=== PATIENT | female | born 1945 | race Caucasian/White ===

== ENCOUNTER 2019-08-14 07:14 | Day surgery (SDC) | payer MEDICARE ==
[~2019-08-14] VITALS: Ht 167.6 cm; Wt 83.5 kg
[~2019-08-14 07:14] MED LIST: ALBU90OI INH; Aspir 8181 MG PO; CALCAVITDA PO; CENTRUM COMPLE1 EACH PO; CEPH500 PO; DOCU100 PO; DULO60 PO; ESTR2 PO; ETOD200 PO; FOSI10 PO; GABA300T24 PO; GAVILAX17 GM PO; HYDCHL12.5 PO; KETO200ER PO; KETO50 PO; Lovastatin20 MG PO; MECL25 PO; OXYC30ER PO; OXYC40ER PO; PANT20 PO; Prinivil10 MG PO; TERB5 PO; THEO200ERA PO; VERTICALM25 MG PO; ZYRTEC10 M2 PO; Zanaflex4 MG PO; [UNRECOGNIZED DRUG - OTHER] PO
== END 2019-08-14 10:00 | disposition home or self-care (01) ==
LOC: ORSCSDS 07:14
PROVIDERS: Student in an Organized Health Care Education/Training Program
PROC: 0DBP8ZX Excision of Rectum, Via Natural or Artificial Opening Endoscopic, Diagnostic (ICD-10-PCS; principal; 2019-08-14 09:00)
PROC: 0DBK8ZX Excision of Ascending Colon, Via Natural or Artificial Opening Endoscopic, Diagnostic (ICD-10-PCS; principal; 2019-08-14 09:00)
PROC: 0DBH8ZX Excision of Cecum, Via Natural or Artificial Opening Endoscopic, Diagnostic (ICD-10-PCS; principal; 2019-08-14 09:00)
DX: K92.1 Melena (principal); D12.2 Benign neoplasm of ascending colon; D12.0 Benign neoplasm of cecum; D12.8 Benign neoplasm of rectum; K57.30 Diverticulosis of large intestine without perforation or abscess without bleeding; K64.8 Other hemorrhoids; K64.4 Residual hemorrhoidal skin tags; I10 Essential (primary) hypertension; J45.909 Unspecified asthma, uncomplicated; F17.210 Nicotine dependence, cigarettes, uncomplicated; Z79.899 Other long term (current) drug therapy; Z79.82 Long term (current) use of aspirin
CPT/HCPCS: 88305; J2704; J7120

== ENCOUNTER 2019-08-17 02:31 | Emergency (ER) | payer MEDICARE ==
[~2019-08-17] VITALS: Ht 165.1 cm; Wt 83.9 kg
[2019-08-17 03:57] LABS: BASOPHILS ABSOLUTE AUTO 0.04 K/mm3 (0.00-0.23); BASOPHILS PERCENT AUTO 1 % (0-2); EOSINOPHILS PERCENT AUTO 2 % (0-6); Hematocrit 42.6 % (33.0-51.0); Hemoglobin 13.4 g/dL (11.5-16.0); IMMATURE GRAN ABSOLUTE AUTO 0.01 K/mm3 (0.00-0.10); IMMATURE GRAN PERCENT AUTO 0 % (0-1); LYMPHOCYTES ABSOLUTE AUTO 1.29 K/mm3 (0.84-5.20); LYMPHOCYTES PERCENT AUTO 21 % (21-46); MONOCYTES ABSOLUTE AUTO 0.54 K/mm3 (0.16-1.47); MONOCYTES PERCENT AUTO 9 % (4-13); Mean Corpuscular HGB 29.8 pg (26.0-34.0); Mean Corpuscular HGB Conc 31.5 g/dL (31.5-36.5); Mean Corpuscular Volume 95 fL (80-100); Mean Platelet Volume 9.8 fL (9.1-12.4); NEUTROPHILS ABSOLUTE AUTO 4.25 K/mm3 (1.96-9.15); NEUTROPHILS PERCENT AUTO 68 % (41-73); Platelet Count 229 K/mm3 (150-400); RDW Coefficient Variation 13.5 % (11.7-14.2); RDW Standard Deviation 47.9 fL (35.1-46.3); Red Blood Cell Count 4.49 M/mm3 (3.80-5.20); White Blood Cell Count 6.23 K/mm3 (4.00-11.30)
[2019-08-17 04:24] LABS: Alanine Aminotransfer (ALT/SGP 15 U/L (12-78); Albumin/Globulin Ratio 0.9 (0.8-1.8); Alk Phos 70 U/L (50-136); Anion Gap 6 mmol/L (6-16); Aspartate Aminotrans (AST/SGOT 22 U/L (12-37); Bilirubin, Total 0.7 mg/dL (0.1-1.0); Blood Urea Nitrogen 19 mg/dL (8-24); Bun/Creatinine Ratio 22.6 (12.0-20.0); CO2, Blood 28 mmol/L (21-32); Calcium, Blood 8.7 mg/dL (8.5-10.1); Chloride, Blood 106 mmol/L (98-108); Creatinine, Blood 0.84 mg/dL (0.40-1.00); Globulin, Blood 3.3 g/dL (2.2-4.0); Glomerular Filtration Rate >60 (60-); Glucose, Blood 122 mg/dL (70-99); Potassium, Blood 3.7 mmol/L (3.5-5.5); Sodium, Blood 140 mmol/L (136-145); Total Protein, Blood 6.3 g/dL (6.4-8.2)
== END 2019-08-17 06:29 | disposition home or self-care (01) ==
LOC: ER 02:31
PROVIDERS: Emergency Medicine
DX: Z04.3 Encounter for examination and observation following other accident (principal); Z88.2 Allergy status to sulfonamides; Z88.5 Allergy status to narcotic agent; Z88.8 Allergy status to other drugs, medicaments and biological substances; Z79.899 Other long term (current) drug therapy; Z79.82 Long term (current) use of aspirin; I10 Essential (primary) hypertension; J44.9 Chronic obstructive pulmonary disease, unspecified; G62.9 Polyneuropathy, unspecified; M54.9 Dorsalgia, unspecified; G89.29 Other chronic pain; F17.200 Nicotine dependence, unspecified, uncomplicated; W18.30XA Fall on same level, unspecified, initial encounter
CPT/HCPCS: 36415; 70450; 80053; 83880; 84484; 85025; 93005; 93010; 99284-25

== ENCOUNTER 2019-08-21 08:26 | Observation (INO) | payer MEDICARE ==
[~2019-08-21] VITALS: Ht 167.6 cm; Wt 87.5 kg
[2019-08-21 09:11] LABS: Source, Urine Clean Catch
[2019-08-21 09:14] LABS: Bilirubin, Urine Neg (Neg); Blood, Urine 1+ (Neg); Glucose Qualitative, Urine Neg (Neg); Ketones, Urine Neg (Neg); Leukocyte Esterase, Urine Neg (Neg); Nitrite, Urine Neg (Neg); Protein, Urine Neg (Neg); Specific Gravity, Urine 1.025 (1.003-1.022); Urobilinogen, Urine NORM (Normal)
[2019-08-21 09:19] LABS: Appearance, Urine Hazy (Clear); Color, Urine Yellow (P-Yellow)
[2019-08-21 09:21] LABS: Bacteria Many /hpf; Red Blood Cells, Urine 0-2 /hpf (0-2); Squamous Epithelial Cells Many /hpf (Few)
[2019-08-21 09:34] LABS: BASOPHILS ABSOLUTE AUTO 0.05 K/mm3 (0.00-0.23); BASOPHILS PERCENT AUTO 1 % (0-2); EOSINOPHILS ABSOLUTE AUTO 0.17 K/mm3 (0.00-0.68); EOSINOPHILS PERCENT AUTO 2 % (0-6); Hematocrit 45.2 % (33.0-51.0); Hemoglobin 14.6 g/dL (11.5-16.0); IMMATURE GRAN ABSOLUTE AUTO 0.03 K/mm3 (0.00-0.10); IMMATURE GRAN PERCENT AUTO 0 % (0-1); LYMPHOCYTES ABSOLUTE AUTO 2.19 K/mm3 (0.84-5.20); LYMPHOCYTES PERCENT AUTO 30 % (21-46); MONOCYTES ABSOLUTE AUTO 0.77 K/mm3 (0.16-1.47); MONOCYTES PERCENT AUTO 11 % (4-13); Mean Corpuscular HGB 29.8 pg (26.0-34.0); Mean Corpuscular HGB Conc 32.3 g/dL (31.5-36.5); Mean Platelet Volume 9.7 fL (9.1-12.4); NEUTROPHILS ABSOLUTE AUTO 4.13 K/mm3 (1.96-9.15); NEUTROPHILS PERCENT AUTO 56 % (41-73); Platelet Count 279 K/mm3 (150-400); RDW Coefficient Variation 13.1 % (11.7-14.2); RDW Standard Deviation 43.9 fL (35.1-46.3); White Blood Cell Count 7.34 K/mm3 (4.00-11.30)
[2019-08-21 09:38] LABS: Mean Corpuscular Volume 92 fL (80-100)
[2019-08-21 09:58] LABS: Alanine Aminotransfer (ALT/SGP 14 U/L (12-78); Albumin, Blood 3.3 g/dL (3.4-5.0); Albumin/Globulin Ratio 0.9 (0.8-1.8); Alk Phos 76 U/L (50-136); Anion Gap 4 mmol/L (6-16); Aspartate Aminotrans (AST/SGOT 10 U/L (12-37); Bilirubin, Total 0.6 mg/dL (0.1-1.0); Blood Urea Nitrogen 25 mg/dL (8-24); Bun/Creatinine Ratio 32.6 (12.0-20.0); CO2, Blood 31 mmol/L (21-32); Calcium, Blood 9.5 mg/dL (8.5-10.1); Chloride, Blood 102 mmol/L (98-108); Creatinine, Blood 0.77 mg/dL (0.40-1.00); Globulin, Blood 3.7 g/dL (2.2-4.0); Glomerular Filtration Rate >60 (60-); Glucose, Blood 109 mg/dL (70-99); Potassium, Blood 3.9 mmol/L (3.5-5.5); Sodium, Blood 137 mmol/L (136-145)
[2019-08-21] MEDS ORDERED: OXYB5 PO (12:51)
--- NOTE | 2019-08-21 19:06 | NUR ---
SHIFT SUMMARY: PATIENT ADMIT (OBSERVATION) FROM ED THIS SHIFT. PT A&O; [place]; CALM AND COOEPRATIVE WITH CARE. MEDICATED FOR CHRONIC BACK PAIN PER EMAR; PT ALSO HAS SCHEDULED OXYCONTIN. PUT UP WITH 1-ASSIST TO BATHROOM; PT OUTSIDE TO SMOKE ONCE SINCE ARRIVAL ON MEDICAL. SERIAL TROPONINS ORDERED; PLANNED MRI OF HEAD 08/22. REPORT GIVEN TO ONCOMING RN.
--- NOTE | 2019-08-22 05:43 | NUR ---
SHIFT SUMMARY- PT. A&O, PLEASANT AND COOPERATIVE CARE WITH CARE. MEDICATED LAST NIGHT WITH PRN PAIN MEDS FOR CHRONIC BACK PAIN. PT. ABLE TO SLEEP T/O THE SHIFT. NO S/S OF ANY DEFICITS NOTED. PT. AMBULATES TO THE BATHROOM W/O DIFFICULTY. NO ACUTE CHANGES TO CONDITION. PT. SCHEDULED FOR MRI OF THE HEAD IN THE AM. CALL LIGHT WITHIN REACH AND SIDE RAILS UP X2. WILL CONT TO MONITOR.
[2019-08-22 07:59] LABS: BASOPHILS ABSOLUTE AUTO 0.05 K/mm3 (0.00-0.23); BASOPHILS PERCENT AUTO 1 % (0-2); EOSINOPHILS ABSOLUTE AUTO 0.18 K/mm3 (0.00-0.68); EOSINOPHILS PERCENT AUTO 2 % (0-6); Hematocrit 44.2 % (33.0-51.0); Hemoglobin 14.4 g/dL (11.5-16.0); IMMATURE GRAN ABSOLUTE AUTO 0.02 K/mm3 (0.00-0.10); IMMATURE GRAN PERCENT AUTO 0 % (0-1); LYMPHOCYTES PERCENT AUTO 29 % (21-46); MONOCYTES ABSOLUTE AUTO 0.74 K/mm3 (0.16-1.47); MONOCYTES PERCENT AUTO 10 % (4-13); Mean Corpuscular HGB 29.8 pg (26.0-34.0); Mean Corpuscular HGB Conc 32.6 g/dL (31.5-36.5); Mean Corpuscular Volume 92 fL (80-100); Mean Platelet Volume 9.6 fL (9.1-12.4); NEUTROPHILS ABSOLUTE AUTO 4.34 K/mm3 (1.96-9.15); NEUTROPHILS PERCENT AUTO 58 % (41-73); Platelet Count 290 K/mm3 (150-400); RDW Coefficient Variation 13.1 % (11.7-14.2); RDW Standard Deviation 44.2 fL (35.1-46.3); Red Blood Cell Count 4.83 M/mm3 (3.80-5.20); White Blood Cell Count 7.53 K/mm3 (4.00-11.30)
[2019-08-22 08:12] LABS: International Normalized Ratio 0.96; Prothrombin Time Results 10.3 Sec (9.7-11.5)
[2019-08-22 08:27] LABS: Alanine Aminotransfer (ALT/SGP 12 U/L (12-78); Albumin, Blood 3.1 g/dL (3.4-5.0); Albumin/Globulin Ratio 0.9 (0.8-1.8); Alk Phos 70 U/L (50-136); Anion Gap 5 mmol/L (6-16); Aspartate Aminotrans (AST/SGOT 10 U/L (12-37); Blood Urea Nitrogen 20 mg/dL (8-24); Bun/Creatinine Ratio 29.5 (12.0-20.0); CO2, Blood 29 mmol/L (21-32); Calcium, Blood 9.3 mg/dL (8.5-10.1); Chloride, Blood 108 mmol/L (98-108); Creatinine, Blood 0.68 mg/dL (0.40-1.00); Globulin, Blood 3.5 g/dL (2.2-4.0); Glomerular Filtration Rate >60 (60-); Glucose, Blood 96 mg/dL (70-99); Potassium, Blood 3.8 mmol/L (3.5-5.5); Sodium, Blood 142 mmol/L (136-145); Total Protein, Blood 6.6 g/dL (6.4-8.2)
[2019-08-22 08:36] LABS: Troponin I 0.079 ng/mL (0.000-0.040)
[2019-08-22 08:37] LABS: CHOL/HDL RATIO 3.6; Cholesterol 150 mg/dL (50-200); HDL Cholesterol 42 mg/dL (>39); Low Density Lipoprotein Chol 82 mg/dL (0-110); Triglycerides 128 mg/dL (30-160); Very Low Density Lipoprot Chol 25 mg/dL (6-32)
[2019-08-22] MEDS ORDERED: AMLO5 PO (11:41)
--- NOTE | 2019-08-22 12:06 | NUR ---
PT DISCHARED DC INSTRUCTIONS AND MEDICATIONS REVIEWED WITH PT- PT VERB UNDERSTANDING. NEW RX FAXED TO [facility]. PERSONAL BELONGINGS WITH PT. PT DC'D VIA WC WITH [facility].
--- NOTE | 2019-08-22 12:09 | NUR ---
LATE ENTRY 08/22/[address] HERNANDEZ ABOUT ELEVATED BLOOD PRESSURE AND THAT PTS HOME DOSE OF LISINOPRIL IS 30 MG. NEW ORDERS RECIEVED. WILL RECHECK BP AFTER MED ADMINISTERED.
== END 2019-08-22 12:02 | disposition home or self-care (01) ==
LOC: ER 08:26 → MEDS 08:27 → ER 14:25 → MEDS 14:30
PROVIDERS: Nurse Practitioner Acute Care; Physician Assistant; ADMIT Family Medicine
DX: G45.9 Transient cerebral ischemic attack, unspecified (principal); I67.2 Cerebral atherosclerosis; I35.0 Nonrheumatic aortic (valve) stenosis; I10 Essential (primary) hypertension; E78.5 Hyperlipidemia, unspecified; G89.29 Other chronic pain; M19.90 Unspecified osteoarthritis, unspecified site; J44.9 Chronic obstructive pulmonary disease, unspecified; G62.9 Polyneuropathy, unspecified; F17.210 Nicotine dependence, cigarettes, uncomplicated; Z79.82 Long term (current) use of aspirin; Z79.899 Other long term (current) drug therapy; F32.9 Major depressive disorder, single episode, unspecified; Z88.2 Allergy status to sulfonamides; Z88.8 Allergy status to other drugs, medicaments and biological substances; Z88.5 Allergy status to narcotic agent
CPT/HCPCS: 36415; 70450; 71046; 80053; 80061; 81001; 82607; 82746; 84443; 84484; 85025; 85610; 87086; 93005; 93010; 93306; 93880; 96360; 96361; 96372; 97165; 99285-25; G0378; J1650; J7030

== ENCOUNTER 2019-10-02 09:44 | Day surgery (SDC) | payer MEDICARE ==
[~2019-10-02] VITALS: Ht 167.6 cm; Wt 84.0 kg
[~2019-10-02 09:44] MED LIST changes: +AMLO5 PO; +ATOR20 PO; +METO50ER PO; +OXYB5 PO
[2019-10-02] MEDS ORDERED: CALCIUM 600 +1 EA11 PO (10:53)
[2019-10-02] MEDS ORDERED: CENTRUM SILVER1 EAC3 PO (10:53)
[2019-10-02] MEDS ORDERED: ALBU90OI INH (10:54)
[2019-10-02] MEDS ORDERED: TURMERIC500 M2 PO (10:55)
[2019-10-02] MEDS ORDERED: Flonase 0.05% N16 GM (10:55)
[2019-10-02 11:00] LABS: International Normalized Ratio 0.98; Prothrombin Time Results 10.5 Sec (9.7-11.5)
[2019-10-02 11:07] LABS: Anion Gap 6 mmol/L (6-16); Blood Urea Nitrogen 25 mg/dL (8-24); Bun/Creatinine Ratio 34.3 (12.0-20.0); CO2, Blood 27 mmol/L (21-32); Calcium, Blood 9.3 mg/dL (8.5-10.1); Chloride, Blood 105 mmol/L (98-108); Creatinine, Blood 0.73 mg/dL (0.40-1.00); Glomerular Filtration Rate >60 (60-); Glucose, Blood 93 mg/dL (70-99); Potassium, Blood 3.9 mmol/L (3.5-5.5); Sodium, Blood 138 mmol/L (136-145)
[2019-10-02 12:42] LABS: BASOPHILS ABSOLUTE AUTO 0.04 K/mm3 (0.00-0.23); BASOPHILS PERCENT AUTO 1 % (0-2); EOSINOPHILS ABSOLUTE AUTO 0.23 K/mm3 (0.00-0.68); EOSINOPHILS PERCENT AUTO 3 % (0-6); Hematocrit 42.3 % (33.0-51.0); Hemoglobin 13.8 g/dL (11.5-16.0); IMMATURE GRAN ABSOLUTE AUTO 0.01 K/mm3 (0.00-0.10); IMMATURE GRAN PERCENT AUTO 0 % (0-1); LYMPHOCYTES ABSOLUTE AUTO 2.24 K/mm3 (0.84-5.20); LYMPHOCYTES PERCENT AUTO 32 % (21-46); MONOCYTES ABSOLUTE AUTO 0.57 K/mm3 (0.16-1.47); MONOCYTES PERCENT AUTO 8 % (4-13); Mean Corpuscular HGB 29.7 pg (26.0-34.0); Mean Corpuscular HGB Conc 32.6 g/dL (31.5-36.5); Mean Corpuscular Volume 91 fL (80-100); Mean Platelet Volume 9.9 fL (9.1-12.4); NEUTROPHILS ABSOLUTE AUTO 3.96 K/mm3 (1.96-9.15); NEUTROPHILS PERCENT AUTO 56 % (41-73); Platelet Count 256 K/mm3 (150-400); RDW Coefficient Variation 13.5 % (11.7-14.2); RDW Standard Deviation 45.6 fL (35.1-46.3); Red Blood Cell Count 4.64 M/mm3 (3.80-5.20); White Blood Cell Count 7.05 K/mm3 (4.00-11.30)
--- NOTE | 2019-10-02 13:10 | NUR ---
PT AMBULATES TO RESTROOM AND BACK WITHOUT DIFF. NADN. VSS. R RADIAL REMAINS CLEAR.
--- NOTE | 2019-10-02 14:37 | NUR ---
ATTEMPTED TO RELEASE AIR FROM TR BAND. BLEEDING NOTED. PT TR BAND REINFLATED. NO BLEEDING NOTED. SOFT, AND NON TENDER. WILL CONTINUE TO MONITOR. CALL LIGHT WITHIN REACH.
--- NOTE | 2019-10-02 15:00 | NUR ---
TR BAND FULLY DEFLATED. NO BLEEDING OR HEMATOMA NOTED. VSS. NADN. PT VERBALIZES UNDERSTANDING WRITTEN AND VERBAL ORDERS.
--- NOTE | 2019-10-02 15:50 | NUR ---
PT DRESSES SELF WITH MINIMAL ASSISTANCE. PT TR BAND REMOVED. DOT DRESSING IN PLACE. NO BLEEDING OR HEMATOMA NOTED. SPLINT IN PLACE. PT IV DC'D. CATH INTACT. PRESSURE DSG APPLIED. PT DC TO HOME VIA FRIEND BY BRIJESH
== END 2019-10-02 15:50 | disposition home or self-care (01) ==
LOC: MHTC 09:44
PROVIDERS: Internal Medicine Cardiovascular Disease; Internal Medicine Interventional Cardiology
PROC: B215YZZ Fluoroscopy of Left Heart using Other Contrast (ICD-10-PCS; principal; 2019-10-02)
PROC: B211YZZ Fluoroscopy of Multiple Coronary Arteries using Other Contrast (ICD-10-PCS; principal; 2019-10-02)
PROC: 4A023N7 Measurement of Cardiac Sampling and Pressure, Left Heart, Percutaneous Approach (ICD-10-PCS; principal; 2019-10-02)
DX: I25.118 Atherosclerotic heart disease of native coronary artery with other forms of angina pectoris (principal); I25.82 Chronic total occlusion of coronary artery; Z88.8 Allergy status to other drugs, medicaments and biological substances; Z88.2 Allergy status to sulfonamides; Z88.5 Allergy status to narcotic agent
CPT/HCPCS: 76937; 80048; 85025; 85347; 85610; 93454; 99152; 99153; C1769; C1894; J1644; J2250; J3010; J7030; J7040; Q9967